=== PATIENT | male | born 1970 | race Caucasian/White ===

== ENCOUNTER 2020-09-28 14:00 | Emergency (ER) | payer MEDICAID ==
[~2020-09-28] VITALS: Ht 170.2 cm; Wt 61.4 kg
[2020-09-28 15:09] VITALS: BP 118/87
== END 2020-09-28 16:45 | disposition home or self-care (01) ==
LOC: ER 14:01
DX: K40.90 Unilateral inguinal hernia, without obstruction or gangrene, not specified as recurrent (principal); R10.31 Right lower quadrant pain; F17.200 Nicotine dependence, unspecified, uncomplicated; F12.90 Cannabis use, unspecified, uncomplicated; Z98.890 Other specified postprocedural states
CPT/HCPCS: 99281

== ENCOUNTER 2020-11-09 07:16 | Emergency (ER) | payer MEDICAID ==
[~2020-11-09] VITALS: Ht 170.2 cm; Wt 61.4 kg
[2020-11-09 07:46] VITALS: BP 113/84
[2020-11-09] MEDS ORDERED: HYDROcodone/acetaminophen 5mg/325mg tablet PO ONE (07:55)
[2020-11-09] MEDS ORDERED: ketorolac trometh inj. 60 MG/2 ML VIAL IM ONE (07:55)
[2020-11-09] MEDS ORDERED: ondansetron 4mg rapidly disintigrating tab PO ONE (07:55)
[2020-11-09] MEDS ORDERED: acetaminophen 325mg tablet PO ONE (07:55)
[2020-11-09] MEDS ORDERED: morphine 4 MG/ML inj SYRINge IV ONE (08:00)
[2020-11-09] MEDS ORDERED: ondansetron/PF 4mg/2ml inj IV ONE (08:00)
[2020-11-09 08:26] LABS: BASOPHILS % (AUTO) 0.6 % (0-1); EOSINOPHILS # (AUTO) 0.5 X10'3 (0-0.9); EOSINOPHILS % (AUTO) 7.9 % (0-6); HEMATOCRIT 48.3 % (42.0-52.0); HEMOGLOBIN 16.1 g/dl (14.0-17.9); LYMPHOCYTES # (AUTO) 1.8 X10'3 (1.1-4.8); LYMPHOCYTES % (AUTO) 30.2 % (21-51); MEAN CORPUSCULAR HEMOGLOBIN 31.5 PG (27.0-31.0); MEAN CORPUSCULAR HGB CONC 33.4 g/dL (33.0-36.5); MEAN CORPUSCULAR VOLUME 94.5 FL (78-98); MEAN PLATELET VOLUME 7.3 FL (7.4-10.4); MONOCYTES # (AUTO) 0.6 X10'3 (0-0.9); MONOCYTES % (AUTO) 10.6 % (2-12); NEUTROPHILS # (AUTO) 3.1 X10'3 (1.8-7.7); NEUTROPHILS % (AUTO) 50.7 % (42-75); PLATELET COUNT 242 X10'3 (140-440); RED BLOOD COUNT 5.11 X10'6 (4.70-6.10); RED CELL DISTRIBUTION WIDTH 14.2 % (11.5-14.5)
[2020-11-09 08:37] LABS: ALANINE AMINOTRANSFERASE 27 U/L (12-78); ALBUMIN 3.5 G/DL (3.4-5.0); ALKALINE PHOSPHATASE 89 IU/L (46-116); ANION GAP 5 (8-16); ASPARTATE AMINO TRANSFERASE 14 U/L (10-37); BILIRUBIN,TOTAL 0.3 MG/DL (0.1-1.0); BLOOD UREA NITROGEN 15 MG/DL (7-18); BUN/CREATININE RATIO 12.8 (5.4-32.0); CALCIUM 8.6 MG/DL (8.5-10.1); CHLORIDE 106 MMOL/L (99-107); CREATININE 1.17 MG/DL (0.60-1.10); GLUCOSE 96 MG/DL (70-104); SODIUM 142 MMOL/L (135-145); TOTAL CARBON DIOXIDE 31.3 MMOL/L (24-32); TOTAL PROTEIN 6.9 G/DL (6.4-8.2); eGFR 65 ML/MIN
--- NOTE | 2020-11-09 08:41 | NUR ---
RECEIVED REPORT FROM PELON GUTIERREZ. AWAITING PATIENT ARRIVAL.
[2020-11-09 08:42] LABS: PARTIAL THROMBOPLASTIN TIME 28 SECONDS (22-32)
[2020-11-09] MEDS ORDERED: ketorolac trometh. 30mg/ml inj. IV ONE (09:15)
[2020-11-09] MEDS ORDERED: HYDR-3965 PO (09:20)
[2020-11-09] MEDS ORDERED: MELO-100 PO (09:20)
== END 2020-11-09 10:03 | disposition home or self-care (01) ==
LOC: ER 07:16 → ED HOLD 07:58 → UNDOADMIN 07:58 → UNDODISIN 10:01
DX: U07.1 COVID-19 (principal); K40.90 Unilateral inguinal hernia, without obstruction or gangrene, not specified as recurrent; F12.90 Cannabis use, unspecified, uncomplicated; Z79.899 Other long term (current) drug therapy
CPT/HCPCS: 36415; 71045; 80053; 85025; 85610; 85730; 86885; 86900; 86901; 87635; 93005; 96374; 96375; 99285; C9803; J2270; J2405; G0378

== ENCOUNTER 2020-11-23 11:48 | Day surgery (SDC) | payer MEDICAID ==
[2020-11-23] VITALS (8 sets, daily range): BP systolic 119–184; BP diastolic 76–113
[~2020-11-23] VITALS: Ht 170.2 cm; Wt 61.2 kg
[~2020-11-23 11:48] MED LIST: HYDR-3964 PO; MELO-100 PO; albuterol 2.5 MG/3 ML nebule NEB ONE; ceFAZolin 2gm in dextrose, iso 50 ML IV ONE; famotidine 20mg tablet PO ONE; ringers solution, lacted 1,000 ML IV SCH
[2020-11-23] MEDS ORDERED: morphine 4 MG/ML inj SYRINge IV PRN (12:10)
[2020-11-23] MEDS ORDERED: fentaNYL/PF 50MCG/1 ML 2ML syringe IV PRN ×3 (12:10)
[2020-11-23] MEDS ORDERED: hydrALAZINE 20mg/ml inj. IV PRN (12:10)
[2020-11-23] MEDS ORDERED: labetalol 20mg/4ml (5mg/ml) syringe IV PRN (12:10)
[2020-11-23] MEDS ORDERED: ringers solution, lacted 1,000 ML IV SCH (12:10)
[2020-11-23] MEDS ORDERED: ondansetron/PF 4mg/2ml inj IV PRN (12:10)
--- NOTE | 2020-11-23 12:47 | NUR ---
PT HERE FOR SURGERY. WAS COVID POSITIVE 11/09/20. IT HAS BEEN 14 DAYS. PT HAD NO SYMPTOMS. ADDITIONALLY, PT ANSWER THE COVID QUESTIONS TODAY WITHOUT ANY EXPOSURE OR SYMPTOMS OF COVID DURINIG THE LAST [address] ARECHIGA AND ANESTHESIA AWARE.
[2020-11-23] MEDS ORDERED: BUPIVAcaine/PF 2.5 mg/ml (0.25%) 30ml vial ONE (15:01)
[2020-11-23] MEDS ORDERED: LIDOcaine 1% 30ml preserv. free vial ONE (15:01)
[2020-11-23] MEDS ORDERED: sevoflurane 250ml liquid IH ONE (15:10)
[2020-11-23] MEDS ORDERED: fentaNYL/PF 50MCG/1 ML 2ML syringe ONE (15:19)
[2020-11-23] MEDS ORDERED: midazolam 2 mg/2 ml injection ONE (15:19)
[2020-11-23] MEDS ORDERED: dexamethasone sod phosphate 4mg/ml inj. ONE (15:29)
[2020-11-23] MEDS ORDERED: rocuronium 10mg/ml inj IV ONE (15:30)
[2020-11-23] MEDS ORDERED: ondansetron/PF 4mg/2ml inj ONE (15:30)
[2020-11-23] MEDS ORDERED: glycopyrrolate 0.2mg/ml inj ONE (15:31)
[2020-11-23] MEDS ORDERED: neostigmine methylsulfate 1 MG/ML 10ml vial ONE (15:31)
[2020-11-23] MEDS ORDERED: LIDOcaine 2% (20mg/ml) 5ml vial ONE (15:31)
[2020-11-23] MEDS ORDERED: propofol inj 20 ML IV ONE (15:31)
[2020-11-23] MEDS ORDERED: ketorolac trometh. 30mg/ml inj. ONE (16:40)
--- NOTE | 2020-11-23 16:50 | NUR ---
Received from OR via , accompanied by Anesthesiologist DR [email or web address] and report given by Anesthesiolgist. AWAKENS TO VOICE. VITALS STSABLE. DRESSINGS DI. CORY PAIN. ABD SOFT.
[2020-11-23] MEDS ORDERED: HYDROcodone/acetaminophen 10/325mg tab PO PRN (17:05)
[2020-11-23] MEDS ORDERED: HYDROcodone/acetaminophen 5mg/325mg tablet PO PRN (17:05)
--- NOTE | 2020-11-23 18:20 | NUR ---
AWAKE AND ORIENTED. VITALS STABLE. DRESSINGS DI. STATES ONLY MIN DISCOMFORT. HOME WITH HIS MOM AT THIS TIME.
== END 2020-11-23 18:20 | disposition home or self-care (01) ==
LOC: PAS 11:48
PROVIDERS: ATTEND Surgery
DX: K40.90 Unilateral inguinal hernia, without obstruction or gangrene, not specified as recurrent (principal); F17.210 Nicotine dependence, cigarettes, uncomplicated; Z98.890 Other specified postprocedural states; Z72.89 Other problems related to lifestyle; Z86.16 Personal history of COVID-19; Z79.899 Other long term (current) drug therapy; Z82.49 Family history of ischemic heart disease and other diseases of the circulatory system; Z82.3 Family history of stroke; Z80.52 Family history of malignant neoplasm of bladder
CPT/HCPCS: 49650; 82948; 94640; 94760; C1781; J1100; J1885; J2001; J2250; J2405; J2704; J2710; J3010; J3490; J7120; S2900; A4215; A4618

== ENCOUNTER 2020-12-27 21:17 | Emergency (ER) | payer MEDICAID ==
[~2020-12-27] VITALS: Ht 167.6 cm; Wt 63.6 kg
[~2020-12-27 21:17] MED LIST changes: -albuterol 2.5 MG/3 ML nebule NEB ONE; -ceFAZolin 2gm in dextrose, iso 50 ML IV ONE; -famotidine 20mg tablet PO ONE; -ringers solution, lacted 1,000 ML IV SCH
[2020-12-27 22:41] LABS: BASOPHILS % (AUTO) 0.3 % (0-1); EOSINOPHILS # (AUTO) 0.3 X10'3 (0-0.9); EOSINOPHILS % (AUTO) 2.7 % (0-6); HEMATOCRIT 43.5 % (42.0-52.0); HEMOGLOBIN 14.6 g/dl (14.0-17.9); LYMPHOCYTES # (AUTO) 1.3 X10'3 (1.1-4.8); LYMPHOCYTES % (AUTO) 11.9 % (21-51); MEAN CORPUSCULAR HEMOGLOBIN 31.6 PG (27.0-31.0); MEAN CORPUSCULAR HGB CONC 33.5 g/dL (33.0-36.5); MEAN CORPUSCULAR VOLUME 94.6 FL (78-98); MEAN PLATELET VOLUME 7.2 FL (7.4-10.4); MONOCYTES # (AUTO) 0.7 X10'3 (0-0.9); MONOCYTES % (AUTO) 6.2 % (2-12); NEUTROPHILS # (AUTO) 8.9 X10'3 (1.8-7.7); NEUTROPHILS % (AUTO) 78.9 % (42-75); PLATELET COUNT 282 X10'3 (140-440); RED CELL DISTRIBUTION WIDTH 15.3 % (11.5-14.5); WHITE BLOOD COUNT 11.3 X10'3 (4.5-11.0)
[2020-12-27 22:45] LABS: ALBUMIN 3.5 G/DL (3.4-5.0); ANION GAP 7 (8-16); BLOOD UREA NITROGEN 20 MG/DL (7-18); BUN/CREATININE RATIO 18.5 (5.4-32.0); CALCIUM 8.7 MG/DL (8.5-10.1); CHLORIDE 107 MMOL/L (99-107); CREATININE 1.08 MG/DL (0.60-1.10); GLUCOSE 107 MG/DL (70-104); POTASSIUM 3.7 MMOL/L (3.5-5.1); SODIUM 141 MMOL/L (135-145); TOTAL CARBON DIOXIDE 26.6 MMOL/L (24-32); eGFR 72 ML/MIN
--- NOTE | 2020-12-27 22:48 | NUR ---
DEBBIE [phone]
[2020-12-27] MEDS ORDERED: iohexol 300mg/ml 100ml inj. ONE (23:00)
[2020-12-28] MEDS ORDERED: oxyCODONE/APAP 5-325mg tablet PO ONE (00:20)
[2020-12-28 00:42] VITALS: BP 135/92
== END 2020-12-28 00:44 | disposition home or self-care (01) ==
LOC: ER 21:18
DX: R10.31 Right lower quadrant pain (principal); N43.3 Hydrocele, unspecified; R11.0 Nausea; F12.90 Cannabis use, unspecified, uncomplicated; Z98.890 Other specified postprocedural states; Z79.899 Other long term (current) drug therapy
CPT/HCPCS: 36415; 74177; 80048; 85025; 99285; Q9967